=== PATIENT | female | born 1965 | race Caucasian/White ===

== ENCOUNTER 2016-08-27 11:33 | Emergency (ER) | payer OTHER ==
[2016-08-27 11:59] VITALS: RESP 16
--- NOTE | 2016-08-27 12:11 | EDPHY ---
H & P Time Seen by Provider: 08/27/16 11:48 HPI/ROS: Chief complaint. Low blood pressure HPI. A 51-year-old female went to her PCP today for a thyroid check. She was found to have low blood pressure at the office and was referred to the emergency department. The patient is on propranolol for essential tremor and her physician has been increasing her dose. She is now taking 120 mg daily. She took her propranolol just before her appointment this morning. She had no symptoms of lightheadedness or chest discomfort or trouble breathing or syncope. She says she feels tired in the morning. She feels well now. On review of systems the patient tells me she has had increased swelling to her right lower extremity for about 2 weeks. Occasional pain with this. Again no chest pain or shortness of breath ROS Constitutional. Low blood pressure Eyes. no problems with vision ENT. no sore throat, no nasal drainage Cardiovascular. no chest pain Respiratory. no shortness of breath, no cough Abdominal. no abdominal pain, no nausea/vomiting, no diarrhea . no problems urinating MS. Swelling right lower extremity Skin. no rash Lymph. no swollen glands Neuro. no headache, no dizziness, no difficulty walking or with speech Past Medical/Surgical History: Essential tremor, hypothyroid, seizure disorder Social History: Single, nonsmoker, no alcohol Smoking Status: Never smoked Physical Exam: General Appearance: Alert well-developed female no distress. Vital signs are stable. Blood pressure now is 150/93 at 11:44 a.m.. Retaken at 11:58 a.m. is 126/71. No tachycardia Eyes: Pupils equal and round no pallor or injection. ENT, Mouth: Mucous membranes are moist. Respiratory: There are no retractions, lungs are clear to auscultation. Cardiovascular: Regular rate and rhythm. Gastrointestinal: Abdomen is soft and nontender, no masses, bowel sounds normal. Neurological: Awake and alert, sensory and motor exams grossly normal. Skin: Warm and dry, no rashes. Musculoskeletal: Neck is supple nontender. Extremities right lower extremity has diffuse swelling without erythema Psychiatric: Patient is oriented X 3, there is no agitation. Constitutional: Initial Vital Signs Temperature (C) 36.4 C 08/27/16 11:44 Heart Rate 60 08/27/16 11:44 Respiratory Rate 14 08/27/16 11:44 Blood Pressure 150/93 H 08/27/16 11:44 O2 Sat (%) 98 08/27/16 11:44 O2 Delivery Mode Room Air Allergies/Adverse Reactions: carbamazepine [From Tegretol] Allergy (Intermediate, Verified 08/27/16 11:42) Hives phenytoin [From Dilantin] Allergy (Intermediate, Verified 08/27/16 11:42) Hives sulfamethoxazole [From Bactrim] Allergy (Intermediate, Verified 08/27/16 11:43) Hives trimethoprim [From Bactrim] Allergy (Intermediate, Verified 08/27/16 11:43) Hives Home Medications: Medication Instructions Recorded Bimatoprost 0.01% [Lumigan 0.01% 50 drops OP 08/27/16 (*)] Divalproex [Depakote Sprinkle 125 125 mg PO 08/27/16 MG (*)] Estradiol [Estrace Vaginal (*)] 42.5 gm VG 08/27/16 Levothyroxine [Synthroid 100 mcg 100 mcg PO DAILY06 08/27/16 (*)] Propranolol HCl [Inderal 40mg (*)] 40 mg PO 08/27/16 Medical Decision Making - Diagnostics Imaging: Imaging Impressions Extremity Venous Study 08/27/16 12:23 Impression: No evidence of deep vein thrombosis. Findings discussed with Sam Miller 08/27/2016 at 13:06. Ultrasound reviewed by me and discussed with Dr. Drummond shows no evidence for DVT ED Course/Re-evaluation: Re-evaluation 1:20 p.m. patient has no complaints or symptoms. Her blood pressure is 116/69 currently. Patient and I discussed imaging study results, treatment plan including criteria for return and importance of follow-up and further evaluation. She and I discussed decreasing her propranolol doses I believe that this is likely causing her problem of low blood pressure I tried to review the patient's labs from today however they are not in our computer system yet. I reviewed them from a week ago. I reviewed an EKG that was performed at the office and I feel it is normal. Differential Diagnosis: I considered DVT and acute coronary syndrome or arrhythmia. I believe the patient's hypotension is caused by a high dose of propranolol being used to try to treat and control her essential tremor. Departure - Departure Disposition: Home, Routine, Self-Care Clinical Impression: Hypotension Qualifiers: Hypotension type: hypotension due to drug Qualified Code(s): I95.2 - Hypotension due to drugs Condition: Good Instructions: Hypotension (ED) Additional Instructions: Decrease the propranolol to 60 mg per day. You may cut the pill in half. Regular meals and drink plenty of fluids and stay hydrated. Return for a any worsening or further symptoms. Follow up with the Dr. Sharpe Tuesday or Tuesday for blood pressure check Referrals: Fidelina Sharpe MD [Primary Care Provider] - 2-3 days, call for appt.
[2016-08-27 13:40] VITALS: BP 140/60; PULSE 64; TEMP 97.7; O2SAT 94
== END 2016-08-27 13:39 | disposition home or self-care (01) ==
DX: I95.2 Hypotension due to drugs (principal); T44.7X5A Adverse effect of beta-adrenoreceptor antagonists, initial encounter

== ENCOUNTER → 2017-01-29 | Outpatient (CLI) | payer OTHER | LOC: FIMAGING 09:31 | PROVIDERS: ATTEND Internal Medicine | DX: Z12.31 Encounter for screening mammogram for malignant neoplasm of breast (principal) | CPT/HCPCS: G0202 ==

== ENCOUNTER 2017-04-17 12:28 | Emergency (ER) | payer OTHER ==
[2017-04-17 12:34] VITALS: TEMP 97.9
[2017-04-17] MEDS ORDERED: NS 1,000 ML IV ONE (12:59)
[2017-04-17 13:18] LABS: ADD DIFF? YES; ADD MORPH? NO; ADD SCAN? NO; ATYPICAL LYMPHOCYTE FLAG 0 (0-99); FRAGMENT RBC FLAG 0 (0-99); HEMATOCRIT 38.8 % (38.0-47.0); HEMOGLOBIN 14.1 g/dL (12.6-16.3); LEFT SHIFT FLG 10 (0-99); LIPEMIA HEMOLYSIS FLAG 90 (0-99); MEAN CELL HEMOGLOBIN 34.8 pg (27.9-34.1); MEAN CELL HEMOGLOBIN CONCENTR. 36.3 g/dL (32.4-36.7); MEAN CELL VOLUME 95.8 fL (81.5-99.8); MEAN PLATELET VOLUME 9.8 fL (8.7-11.7); PLATELET CLUMPS FLAG 0 (0-99); PLATELET COUNT 125 10^3/uL (150-400); RED BLOOD CELL COUNT 4.05 10^6/uL (4.18-5.33); RED CELL DISTRIBUTION WIDTH 12.1 % (11.5-15.2)
--- NOTE | 2017-04-17 13:18 | CPEKG ---
Heart Rate: 64 RR Interval: 938 P-R Interval: 152 QRSD Interval: 80 QT Interval: 388 QTC Interval: 401 P [place]: 53 QRS [place]: 45 T Wave [place]: 5 EKG Severity - NORMAL ECG - EKG Impression: SINUS RHYTHM Electronically Signed By: Lucien Bass 18-Apr-2017 21:53:39
--- NOTE | 2017-04-17 13:25 | EDPHY ---
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 She has associated nausea. She was seen by Dr. Perez at her PCP's practice who performed lab work and determined she may have pancreatitis. Dr. Perez advised her to consult with her neurologist as her Depakote may be causing pancreatitis. Her neurologist changed her medication to Keppra. Yesterday she had some improvement in symptoms. Overnight symptoms worsened, prompting her visit. She denies having a history of pancreatic issues or abdominal surgery. She denies recent abdominal ultrasound. She has been consuming Gatorade, 7up and soup. REVIEW OF SYSTEMS: Aside from elements discussed in the HPI, a comprehensive 10-point review of systems was reviewed and is negative. PMH: Cerebral vascular anomaly with auras SOCIAL HISTORY: Lives in [place], single, employed PHYSICAL EXAM: General:Patient is alert, in no acute distress. ENT:Eyes are normal to inspection. ENT inspection normal. Neck: Normal inspection. Full range of motion. Respiratory:No respiratory distress. Breath sounds normal bilaterally. Cardiovascular: Regular rate and rhythm. Normal cap refill. Abdomen:The abdomen is nontender to palpation. There are no peritoneal signs. There are normal bowel sounds. Back: Normal to inspection. No tenderness to palpation. Skin: Normal color. No rash. Warm and dry. Extremities: Normal appearance. Full range of motion. Neuro: Oriented x3. Normal motor function. Normal sensory function. ED Course: EKG was ordered and interpreted by myself. EKG normal. Please see [email or web address] system for official reading. Study: Ultrasound of the abdomen Indication: Abdominal pain Results: Ultrasound of the abdomen was obtained. The results of the study are: normal The study was read by the radiologist, Dr. Garcia. I viewed the images myself on the PACS system. Labs and imaging indicate pancreatitis. I reassessed patient and advised her of the results of her workup. She is currently asymptomatic. I feel she is safe to return home. I have advised her to follow up with her primary care provider for repeat labs in 72 hours. I have referred her to a supervisor [facility]. She agrees to this course of action. Return precautions given. MDM: This patient presents with epigastric pain in the setting of outpatient lab that indicated elevated lipase. Repeat labs here in the ED reveal normal lipase , normal LFTs and normal RUQ US. On re-evaluation, her epigastric pain has resolved. Given resolution of lab abnormalities and pain after switching from Depakote to Keppra, I suspect the Depakote represents the underlying etiology. I do not think further imaging is indicated at this time, but should her symptoms return, this may be indicated. - Data Points Imaging Results: Imaging Impressions Abdomen Ultrasound 04/17/17 12:59 Impression: Normal sonographic evaluation. If there is further clinical concern regarding an ongoing pancreatitis, contrast -enhanced CT imaging would be more sensitive means of assessment. Findings were discussed with Lucien Bass MD at 14:48, on 04/17/2017. Laboratory Results: Laboratory Results 04/17/17 13:07 04/17/17 13:07 04/17/17 04/17/17 13:07 13:07 WBC 8.11 10^3/uL 10^3/uL (3.80-9.50) RBC 4.05 10^6/uL L 10^6/uL (4.18-5.33) Hgb 14.1 g/dL g/dL (12.6-16.3) Hct 38.8 % % (38.0-47.0) MCV 95.8 fL fL (81.5-99.8) MCH 34.8 pg H pg (27.9-34.1) MCHC 36.3 g/dL g/dL (32.4-36.7) RDW 12.1 % % (11.5-15.2) Plt Count 125 10^3/uL L 10^3/uL (150-400) MPV 9.8 fL fL (8.7-11.7) Neut % (Auto) Not Reported Lymph % (Auto) Not Reported [place] % (Auto) Not Reported Eos % (Auto) Not Reported Baso % (Auto) Not Reported Nucleat RBC Rel Count 0.0 % % (0.0-0.2) Absolute Neuts (auto) Not Reported Absolute Lymphs (auto) Not Reported Absolute Monos (auto) Not Reported Absolute Eos (auto) Not Reported Absolute Basos (auto) Not Reported Absolute Nucleated RBC 0.00 10^3/uL 10^3/uL (0-0.01) Immature Gran % Not Reported Seg Neutrophils % 51 % % Lymphocytes % 37 % % Monocytes % 10 % % Eosinophils % 1 % % Basophils % 1 % % Immature Gran # Not Reported Absolute Seg Neuts 4.14 10^/uL 10^/uL (1.70-6.50) Absolute Lymphocytes 3.00 10^3/uL 10^3/uL (1.00-3.00) Absolute Monocytes 0.81 10^3/uL H 10^3/uL (0.30-0.80) Absolute Eosinophils 0.08 10^3/uL 10^3/uL (0.03-0.40) Absolute Basophils 0.08 10^3/uL 10^3/uL (0.02-0.10) RBC/WBC/PLT Morphology NORMAL (NORMAL) Atypical Lymphocytes 1+ H Platelet Estimate DECREASED L (ADEQ) Sodium 132 mEq/L L mEq/L (134-144) Potassium 4.1 mEq/L mEq/L (3.5-5.2) Chloride 97 mEq/L mEq/L (97-110) Carbon Dioxide 29 mEq/l mEq/l (22-31) Anion Gap 6 mEq/L L mEq/L (8-16) BUN 12 mg/dL mg/dL (7-23) Creatinine 0.8 mg/dL mg/dL (0.6-1.0) Estimated GFR > 60 Glucose 90 mg/dL mg/dL (70-100) Calcium 9.2 mg/dL mg/dL (8.5-10.4) Total Bilirubin 0.5 mg/dL mg/dL (0.1-1.4) Conjugated Bilirubin 0.2 mg/dL mg/dL (0.0-0.5) Unconjugated Bilirubin 0.3 mg/dL mg/dL (0.0-1.1) AST 18 IU/L IU/L (14-46) ALT 20 IU/L IU/L (9-52) Alkaline Phosphatase 60 IU/L IU/L (38-126) Troponin I < 0.012 ng/mL ng/mL (0.000-0.034) Total Protein 6.6 g/dL g/dL (6.3-8.2) Albumin 3.3 g/dL L g/dL (3.5-5.0) Lipase 257 IU/L IU/L (23-300) Medications Given: Discontinued Medications Sodium Chloride (Ns) 1,000 mls @ 0 mls/hr IV EDNOW ONE; Wide Open PRN Reason: Protocol Stop: 04/17/17 13:00 Last Admin: 04/17/17 13:12 Dose: 1,000 mls General Time Seen by Provider: 04/17/17 12:55 Initial Vital Signs: Initial Vital Signs Temperature (C) 36.6 C 04/17/17 12:29 Heart Rate 69 04/17/17 12:29 Respiratory Rate 18 04/17/17 12:29 Blood Pressure 159/80 H 04/17/17 12:29 O2 Sat (%) 97 04/17/17 12:29 O2 Delivery Mode Room Air Allergies/Adverse Reactions: carbamazepine [From Tegretol] Allergy (Intermediate, Verified 04/17/17 12:29) Hives phenytoin [From Dilantin] Allergy (Intermediate, Verified 04/17/17 12:29) Hives sulfamethoxazole [From Bactrim] Allergy (Intermediate, Verified 04/17/17 12:29) Hives trimethoprim [From Bactrim] Allergy (Intermediate, Verified 04/17/17 12:29) Hives Home Medications: Medication Instructions Recorded Estradiol [Estrace Vaginal (*)] 42.5 gm VG 08/27/16 Levothyroxine [Synthroid 100 mcg 100 mcg PO DAILY06 08/27/16 (*)] Propranolol HCl [Inderal 40mg (*)] 40 mg PO 08/27/16 levETIRACETAM [Keppra Xr] 1,000 mg PO DAILY 04/17/17 Departure - Departure Disposition: Home, Routine, Self-Care Clinical Impression: Pancreatitis Condition: Good Instructions: Pancreatitis (ED) Additional Instructions: 1. Follow-up with your primary care provider in 72 hours for repeat labs. 2. Follow-up with a [facility] if symptoms return. 3. Return to the ED for worsening of condition. Referrals: Fidelina Sharpe MD [Primary Care Provider] - As per Instructions Mandeep Hunter MD [Medical Doctor] - As per Instructions Report Scribed for: Lucien Bass Report Scribed by: Erin Nur Date of Report: 04/17/17 Time of Report: 13:26 Physician Review and Approval Statement: Portions of this note were transcribed by an ED scribe. I personally performed the history, physical exam, and medical decision making; and confirm the accuracy of the information in the transcribed note.
[2017-04-17 13:33] LABS: ALANINE AMINOTRANSFERASE 20 IU/L (9-52); ALBUMIN 3.3 g/dL (3.5-5.0); ALKALINE PHOSPHATASE 60 IU/L (38-126); ANION GAP 6 mEq/L (8-16); ASPARTATE AMINOTRANSFERASE 18 IU/L (14-46); BILIRUBIN,TOTAL 0.5 mg/dL (0.1-1.4); BILIRUBIN-CONJUGATED 0.2 mg/dL (0.0-0.5); BILIRUBIN-UNCONJUGATED 0.3 mg/dL (0.0-1.1); CALCIUM 9.2 mg/dL (8.5-10.4); CARBON DIOXIDE 29 mEq/l (22-31); CHLORIDE 97 mEq/L (97-110); CREATININE 0.8 mg/dL (0.6-1.0); GLOMERULAR FILTRATION RATE > 60; GLUCOSE 90 mg/dL (70-100); POTASSIUM 4.1 mEq/L (3.5-5.2); SODIUM 132 mEq/L (134-144); TOTAL PROTEIN 6.6 g/dL (6.3-8.2)
[2017-04-17 13:43] LABS: TROPONIN I < 0.012 ng/mL (0.000-0.034)
[2017-04-17 13:51] LABS: PLATELET ESTIMATE DECREASED (ADEQ)
[2017-04-17 15:06] VITALS: BP 162/88; PULSE 67; RESP 16; O2SAT 100
== END 2017-04-17 15:05 | disposition home or self-care (01) ==
DX: K85.90 Acute pancreatitis without necrosis or infection, unspecified (principal); E86.9 Volume depletion, unspecified